=== PATIENT | female | born 1930 | race Caucasian/White ===

== ENCOUNTER 2018-07-26 06:27 | Day surgery (SDC) | payer MEDICARE ==
[~2018-07-26 06:27] MED LIST: ACETAMINOPHEN 1,000 MG/100 ML BTL IVPB ONE; CEFAZOLIN 1G VIAL IVP ONE; WATER STERILE FOR INJECTION 20 ML VIAL MC ONE
[2018-07-26] MEDS ORDERED: DESFLURANE 240 ML BTL INH ONE (06:28)
[2018-07-26] MEDS ORDERED: MIDAZOLAM HCL 2MG/2ML VIAL IV ONE (06:28)
[2018-07-26] MEDS ORDERED: DEXAMETHASONE 4 MG/ML 1ML VIAL IVP ONE ×2 (06:28)
[2018-07-26] MEDS ORDERED: ROPIVACAINE HCL (NAROPIN) /PF 5MG/ML 20ML VIAL IV ONE (06:28)
[2018-07-26] MEDS ORDERED: ENOXAPARIN 40 MG/0.4 ML SYR SQ ONE (06:28)
[2018-07-26] MEDS ORDERED: FENTANYL PF 100MCG/2ML VIAL IV ONE (06:28)
[2018-07-26] MEDS ORDERED: 0.9 % SODIUM CHLORIDE 10 ML VIAL IVP ONE (06:28)
[2018-07-26] MEDS ORDERED: PROPOFOL 10 MG/ML VIAL IV ONE (06:28)
[2018-07-26] MEDS ORDERED: LIDOCAINE 2% MDV (20MG/ML) 20ML VIAL IV ONE (06:28)
[2018-07-26] MEDS ORDERED: ONDANSETRON HCL IV 4 MG/2 ML VIAL IVP ONE (06:28)
[2018-07-26] MEDS ORDERED: EPHEDRINE SULFATE 50 MG/ML ML IV ONE (06:28)
[2018-07-26 06:58] LABS: ABSOLUTE NEUTROPHIL COUNT 3.74; BASO % 0.6 % (0-6); EOS % 3.7 % (0-6); GRAN % 53.8 % (47-80); HEMATOCRIT 38.4 % (35.0-47.0); HEMOGLOBIN 11.6 gm/dl (11.6-16.0); LYMPH % 27.9 % (16-45); MEAN CELL VOLUME 95.5 fl (81-97); MEAN CORPUSCULAR HEMOGLOBIN 28.9 pg (27-33); MEAN CORPUSCULAR HGB CONC 30.2 g/dl (32-36); MEAN PLATELET VOLUME 9.2 fl (7.4-10.4); PLATELET COUNT 283 K/uL (130-400); RED BLOOD COUNT 4.02 M/uL (3.80-5.40); RED CELL DISTRIBUTION WIDTH 13.3 % (11.5-14.5)
[2018-07-26] MEDS ORDERED: RINGERS SOLUTION,LACTATED 1,000 ML IV ONE (07:05)
[2018-07-26 07:07] LABS: BLOOD UREA NITROGEN 21 mg/dL (8-23); CREATININE 0.8 mg/dL (0.5-0.9); EST GLOMERULAR FILTRATION RATE > 60 mL/min; GLUCOSE,RANDOM 96 mg/dL (74-109)
[2018-07-26] MEDS ORDERED: BUPIVACAINE 0.5% W/EPI MPF 30 ML VIAL SQ ONE (10:11)
[2018-07-26] MEDS ORDERED: VANCOMYCIN HCL 1,000 MG in DEXTROSE 5 % IN WATER 250 ML IVPB ONE ×2 (10:32)
--- NOTE | 2018-07-27 08:31 | Operative Note ---
DATE OF SURGERY: 07/26/2018 PREOPERATIVE DIAGNOSIS: Displaced bimalleolar ankle fracture on the left. POSTOPERATIVE DIAGNOSIS: Displaced bimalleolar ankle fracture on the left. OPERATION: Open reduction and internal fixation of left ankle bimalleolar fracture. STAFF SURGEON: Miguel Angel Plascencia MD ANESTHESIA: General. PREPARATION: Chloraprep. INDIVIDUAL CONSIDERATIONS: None. PROCEDURE: The patient was taken to the operating room and placed supine on the operating room table. She had a successful induction of a general anesthetic. Her left lower extremity was prepped and draped in the usual fashion. The patient's medial side was operated on first. Previous incision was used for her previous ankle fracture in the past. Sharp dissection carried down through skin and subcutaneous tissue. Small veins were coagulated with a Bovie. Thick periosteum was over the top of the medial malleolus. She had a displaced fracture slightly oblique at the level of the joint line. The two previous screws were then found and removed. I went ahead and reduced it, brought it down and then redirected 2 subsequent 4.0 cancellous screws to hold it for stable osteosynthesis as verified by fluoroscopy. The patient had an incision over the distal fibula laterally. Total length of the incision was about 8 cm. On both wounds medially and laterally, I did infiltrate the skin with 0.5% Marcaine with epinephrine. Tourniquet was also applied during the case and the limb was elevated, tourniquet was inflated to 250 mmHg. On the lateral side, sharp dissection carried down through skin and subcutaneous tissue. Small veins were coagulated with a Bovie. The patient basically had an avulsion fracture of the distal fibula at the lateral malleolus, basically at the level of the joint line. Clot debris and periosteum were stuck in the wound and were brought out. I took a 2.7 lateral distal fibular plate and then fashioned it and then placed 4 locking screws into the distal piece and marilyn it into the plate and then I reduced the plate to the bone on the more proximal piece. This reduced the fracture. I also compressed it manually and also by placing a compression screw into one of the screws in the lateral plate. I got 4 locking screws in the distal piece and I put 4 screws which were bicortical into the proximal portion of the bone to get excellent stable osteosynthesis which was anatomically verified by fluoroscopy. Both wounds were thoroughly irrigated out with Betadine. On the medial side, I closed the periosteum with interrupted 3-0 plus Vicryl. Both wounds had skin closed with interrupted 3-0 nylon in a vertical mattress fashion. A sterile bulky compressive dressing and brace were applied. The patient tolerated procedure well. Needle and sponge counts were correct. Estimated blood loss was 100 mL. The patient was taken back to recovery in good condition. There were no complications. MARC
== END 2018-07-26 11:42 | disposition home or self-care (01) ==
LOC: SUR 06:27
PROVIDERS: ATTEND Orthopaedic Surgery
DX: S82.842A Displaced bimalleolar fracture of left lower leg, initial encounter for closed fracture (principal); J45.909 Unspecified asthma, uncomplicated; E03.9 Hypothyroidism, unspecified
CPT/HCPCS: 27814; 01480; 64447; 85025; 80048; 93005; J2405; J3370; J3010; J2795; 76942; C1713; J0690; J1650; J7060; J7120